=== PATIENT | male | born 1980 | race African-American/Black ===

== ENCOUNTER → 2017-06-15 | Outpatient (CLI) | payer OTHER ==
--- NOTE | ~2017-06-15 | US85 ---
[facility] A Service of [facility] RADIOLOGY TEXT RESULTS PATIENT: JOSÉ MANUEL ANDERSON LOCATION: SNIV : 84 UNIT #: [id number] AGE: [address]: Leanna Torres MD SEX: M ORDER DR: [id number] [place] [id number] MR#: [id number] Acc #: [id number] NAME: JOSÉ MANUEL ANDERSON : 1980 SEX: M STUDY DATE/TIME: 06/15/2017 13:43 UNIT: SN[facility] ROOM: STUDY [place] [facility] [place] [employer] [facility] Attending Physician: Leanna Torres M.D., Ph.D. Referring Physician: Leanna Torres M.D., Ph.D. Ordering Physician: Leanna Torres M.D., Ph.D. Primary Care Physician: No Primary Care Physician MEDICAL IMAGING REPORT This report is preliminary unless electronic signature is present. EXAM Unilateral right lower extremity venous Doppler. DATE OF STUDY 06/15/2017 CLINICAL HISTORY Diagnosed with right lower extremity DVT approximately 6 weeks ago. Patient with known antithrombin 3 deficiency. Currently taking blood thinners for known DVT. PROCEDURE Tello-scale imaging, color-Doppler flow imaging, and Doppler waveform analysis of the right lower extremity. FINDINGS There is nonocclusive thrombus in the common femoral vein, in the distal superficial femoral vein, and in the popliteal vein though again there is continuous flow in each segment. There is also below-knee posterior tibial vein nonocclusive thrombus. The superficial saphenous vein is normal. IMPRESSION While there is persistent though nonocclusive thrombus in the common and superficial femoral and popliteal vein and below-knee posterior tibial vein, there has been a marked improvement since the examination of 04/16/2017 when there was occlusive thrombus through the majority of the right lower extremity. No new abnormality is seen. Dictated by... [facility] A Service [facility] RADIOLOGY TEXT RESULTS PATIENT: JOSÉ MANUEL ANDERSON LOCATION: SNIV : 82 UNIT #: [id number] AGE: [address]: Leanna Torres MD SEX: M ORDER DR: Alvarado López M.D. THIS IS AN ELECTRONICALLY VERIFIED REPORT Alvarado López M.D. at 06/20/2017 5:20 PM TEV/tmw TD: 06/16/2017 09:15 JOB #: [id number] MEDICAL IMAGING REPORT Page 1 of 1
== END | disposition home or self-care (01) ==
LOC: SNIV 13:44 → CNIV 14:00
DX: I82.401 Acute embolism and thrombosis of unspecified deep veins of right lower extremity (principal); I82.411 Acute embolism and thrombosis of right femoral vein; I82.431 Acute embolism and thrombosis of right popliteal vein; I82.441 Acute embolism and thrombosis of right tibial vein
CPT/HCPCS: 93971